=== PATIENT | male | born 1970 | race Caucasian/White ===

== ENCOUNTER 2017-10-12 22:10 | Emergency (ER) | payer SELFPAY ==
[2017-10-12] MEDS ORDERED: Benzonatate 100 MG CAP ONE (22:46)
[2017-10-12] MEDS ORDERED: Amlodipine 5 MG TAB ONE (22:46)
--- NOTE | 2017-10-12 22:59 | RAD ---
RADIOGRAPH CHEST 2 VIEWS: 10/12/17 HISTORY: 47-year-old male with acute chest pain and cough. FINDINGS: There is no air space density, pulmonary edema, pleural effusion, pneumothorax, or cardiomegaly. IMPRESSION: No acute cardiopulmonary findings. yanelis [] POS: [facility]
[2017-10-12 23:16] LABS: #Basophils 0.1 thou/uL (0.0-0.2); #Eosinphils 0.3 thou/uL (0.0-0.7); #Lymphocytes 2.7 thou/uL (1.20-3.40); #Monocytes 0.6 thou/uL (0.11-0.59); %Basophils 1.2 % (0.0-1.0); %Lymphocytes 31.1 % (21.0-51.0); %Neutrophils 56.7 % (42.0-75.0); Hemoglobin 13.9 g/dL (14.0-18.0); Mean Corpuscular HGB CONC 32.8 g/dL (32.0-36.0); Mean Corpuscular Hemoglobin 30.2 pg (27.0-31.0); Mean Corpuscular Volume 92.1 fl (80.0-94.0); Mean Platelet Volume 7.7 fL (7.4-10.4); Platelet Count 218 thou/uL (130-400); RBC Distribution Width 14.2 % (11.5-14.5); White Blood Cell (WBC) Count 8.8 thou/uL (4.8-10.8)
[2017-10-12 23:32] LABS: ALT (SGPT) 17 U/L (8-55); AST (SGOT) 13 U/L (5-34); Albumin 3.6 g/dL (3.5-5.0); Alkaline Phosphatase 61 U/L (40-150); Anion Gap 11 mmol/L (10-20); BUN (Urea Nitrogen) 12 mg/dL (8.9-20.6); Bilirubin, Total 0.2 mg/dL (0.2-1.2); Calc. Creatinine Clearance 0 mL/min (70-130); Calcium 8.9 mg/dL (7.8-10.44); Carbon Dioxide 26 mmol/L (22-29); Chloride 106 mmol/L (98-107); Estimated GFR-MDRD 74; Globulin 2.7 g/dL (2.4-3.5); Glucose 136 mg/dL (70-105); Potassium 4.1 mmol/L (3.5-5.1); Protein, Total 6.3 g/dL (6.0-8.3); Sodium 139 mmol/L (136-145)
[2017-10-12 23:34] LABS: CKMB 1.6 ng/mL (0-6.6); Troponin I Less than 0.010 ng/mL (< 0.028)
== END 2017-10-12 23:55 | disposition home or self-care (01) ==
LOC: SCSER 22:10
DX: J40 Bronchitis, not specified as acute or chronic (principal); I10 Essential (primary) hypertension; R07.89 Other chest pain; F17.210 Nicotine dependence, cigarettes, uncomplicated; Z71.6 Tobacco abuse counseling
CPT/HCPCS: 71046; 80053; 82553; 83880; 84484; 85025; 93005; 99406

== ENCOUNTER 2018-11-02 20:36 | Emergency (ER) | payer SELFPAY ==
[~2018-11-02 20:36] MED LIST: ISOVUE-370 76%-LOCM 1 ML ONE
[2018-11-02 21:07] LABS: #Basophils 0.1 thou/uL (0.0-0.2); #Eosinphils 0.3 thou/uL (0.0-0.7); #Monocytes 0.8 thou/uL (0.11-0.59); #Neutrophils 5.2 thou/uL (1.40-6.50); %Basophils 0.9 % (0.0-1.0); %Eosinophils 3.5 % (0.0-10.0); %Lymphocytes 31.9 % (21.0-51.0); %Monocytes 8.3 % (0.0-10.0); %Neutrophils 55.5 % (42.0-75.0); Hemoglobin 14.4 g/dL (14.0-18.0); Mean Corpuscular HGB CONC 30.8 g/dL (32.0-36.0); Mean Corpuscular Hemoglobin 29.3 pg (27.0-31.0); Mean Platelet Volume 8.1 fL (7.4-10.4); Platelet Count 224 thou/uL (130-400); RBC Distribution Width 14.7 % (11.5-14.5); Red Blood Cell (RBC) Count 4.93 mill/uL (4.70-6.10); White Blood Cell (WBC) Count 9.4 thou/uL (4.8-10.8)
--- NOTE | 2018-11-02 21:18 | RAD ---
Chest one view HISTORY: Chest pain. COMPARISON: 03/15/2015. FINDINGS: Cardiac silhouette is magnified by projection. Mediastinum is midline. Mild bibasilar atele ctasis. No lobar consolidation or evidence of pneumothorax. housing inspectors leads overlie the chest. IMPRESSION: No active cardiopulmonary abnormalities are demonstrated.
[2018-11-02 21:29] LABS: ALT (SGPT) 12 U/L (8-55); AST (SGOT) 10 U/L (5-34); Albumin 3.7 g/dL (3.5-5.0); Alkaline Phosphatase 82 U/L (40-150); Anion Gap 12 mmol/L (10-20); BUN (Urea Nitrogen) 14 mg/dL (8.9-20.6); Bilirubin, Total 0.2 mg/dL (0.2-1.2); CK (CPK) 134 U/L (30-200); Calc. Creatinine Clearance 0 mL/min (70-130); Calcium 8.9 mg/dL (7.8-10.44); Carbon Dioxide 28 mmol/L (22-29); Chloride 102 mmol/L (98-107); Estimated GFR-MDRD 68; Globulin 2.6 g/dL (2.4-3.5); Glucose 175 mg/dL (70-105); Lipase 25 U/L (8-78); Potassium 4.3 mmol/L (3.5-5.1); Protein, Total 6.3 g/dL (6.0-8.3); Sodium 138 mmol/L (136-145)
--- NOTE | 2018-11-02 23:25 | CT ---
CT arteriogram chest with IV contrast and 3-D MIP imaging HISTORY: Chest pain. Dyspnea. FINDINGS: There is good contrast opacification of the pulmonary arteries and thoracic aorta with norm al branching of the great vessels at the aortic arch. Calcification of the coronary arteries. No pleural fluid, pneumothorax, or mediastinal adenopathy. IMPRESSION: No CT evidence of pulmonary embolus. Atherosclerosis.
== END 2018-11-03 00:26 | disposition home or self-care (01) ==
LOC: ERS 20:36
DX: R07.9 Chest pain, unspecified (principal); Z71.6 Tobacco abuse counseling; I10 Essential (primary) hypertension; I25.2 Old myocardial infarction; F17.210 Nicotine dependence, cigarettes, uncomplicated; Z79.899 Other long term (current) drug therapy
CPT/HCPCS: 36415; 71045; 71275; 80053; 82550; 83690; 84484; 85025; 93005; Q9966

== ENCOUNTER 2019-03-10 02:07 | Inpatient (IN) | payer SELFPAY ==
[2019-03-10 02:28] LABS: Actual Bicarbonate (HCO3a) 18.8 mEq/L (22-28); Analyzer IN Cardio ER; Base Excess (BEa) -3.1 mEq/L (-2.0 to +3.0); CO2 Tension 26.9 mmHg (35.0-45.0); Calcium, Ionized 1.09 mmol/L (1.12-1.30); Carboxyhemoglobin (COHb) 2.7 gm% (0.0-3.0); Hemoglobin (Hb) 16.3 g/dL (14.0-18.0); O2 Tension (PaO2) 73.3 mmHg (80.0-100.0); Potassium - ABG Lab 3.83 mmol/L (3.70-5.30); pH, Arterial 7.46 (7.35-7.45)
[2019-03-10 02:46] LABS: #Lymphocytes 1.5 thou/uL (1.20-3.40); #Monocytes 1.5 thou/uL (0.11-0.59); #Neutrophils 11.4 thou/uL (1.40-6.50); %Basophils 0.3 % (0.0-1.0); %Eosinophils 0.3 % (0.0-10.0); %Lymphocytes 10.5 % (21.0-51.0); %Monocytes 10.3 % (0.0-10.0); %Neutrophils 78.6 % (42.0-75.0); Hemoglobin 16.1 g/dL (14.0-18.0); Mean Corpuscular HGB CONC 34.4 g/dL (32.0-36.0); Mean Corpuscular Hemoglobin 31.4 pg (27.0-31.0); Mean Corpuscular Volume 91.2 fL (78.0-98.0); Mean Platelet Volume 8.2 fL (7.4-10.4); Platelet Count 180 thou/uL (130-400); Red Blood Cell (RBC) Count 5.12 mill/uL (4.70-6.10); White Blood Cell (WBC) Count 14.5 thou/uL (4.8-10.8)
[2019-03-10] MEDS ORDERED: Morphine 4 MG/ML VIAL ONE (02:50)
[2019-03-10] MEDS ORDERED: Ondansetron PF 4 MG/2 ML Vial ONE (02:50)
[2019-03-10 02:57] LABS: ALV-art Gradient 42.805 (0-20); Puncture Site LRA
[2019-03-10] MEDS ORDERED: Piperacillin/Tazobactam 4.5 GM VIAL ONE (03:01)
[2019-03-10 03:07] LABS: ALT (SGPT) 9 U/L (8-55); AST (SGOT) 10 U/L (5-34); Albumin 3.9 g/dL (3.5-5.0); Alkaline Phosphatase 68 U/L (40-150); Anion Gap 15 mmol/L (10-20); BUN (Urea Nitrogen) 12 mg/dL (8.9-20.6); Bilirubin, Total 0.4 mg/dL (0.2-1.2); Calc. Creatinine Clearance 0 mL/min (70-130); Calcium 8.9 mg/dL (7.8-10.44); Carbon Dioxide 19 mmol/L (22-29); Chloride 100 mmol/L (98-107); Estimated GFR-MDRD 60; Globulin 3.3 g/dL (2.4-3.5); Glucose 143 mg/dL (70-105); Potassium 3.9 mmol/L (3.5-5.1); Protein, Total 7.2 g/dL (6.0-8.3); Sodium 130 mmol/L (136-145)
[2019-03-10 03:11] LABS: Bacteria/HPF None Seen HPF (None Seen); Bilirubin Negative (Negative); Blood, Urine 1+ (Negative); Clarity Clear (Clear); Glucose, Urine (Dipstick) Normal (Negative); Leukocyte Negative Leu/uL (Negative); Nitrite Negative (Negative); Protein, Urine (Dipstick) 30 mg/dL (Neg-Trace); RBC/HPF 0-3 HPF (0-3); Squamous Epithelial 0-3 HPF (0-3); Urobilinogen 6 mg/dL (Less than 2)
[2019-03-10] MEDS ORDERED: Labetalol HCl 100 MG/20 ML VIAL ONE (03:42)
[2019-03-10] MEDS ORDERED: niCARdipine 20MG In NaCl 20 MG/200 ML BAG ONE ×2 (04:31→08:02)
--- NOTE | 2019-03-10 05:54 | CT ---
CT BRAIN WITHOUT CONTRAST: INDICATIONS: History of headache. COMPARISON: None. FINDINGS: No acute infarct, hemorrhage, or hydrocephalus is present. No midline shift is noted. The skull is intact. The mastoid air cells are clear. The visualized paranasal sinuses are clear. IMPRESSION: No acute intracranial abnormality. POS: [facility]
[2019-03-10] MEDS ORDERED: Acetaminophen 325 MG TAB PO PRN ×2 (08:34→09:24)
[2019-03-10] MEDS ORDERED: HYDROcodone/Acetaminophen 5/325 mg Tablet PO PRN ×2 (08:34)
[2019-03-10] MEDS ORDERED: Ondansetron PF 4 MG/2 ML Vial IVP PRN ×2 (08:34→09:24)
[2019-03-10] MEDS ORDERED: Sodium Chloride 0.9% 1,000 ML IV SCH ×2 (08:34→09:30)
[2019-03-10] MEDS ORDERED: Ondansetron ODT 4 MG TAB SL PRN (08:34)
[2019-03-10] MEDS ORDERED: Morphine 4 MG/ML VIAL SLOW IVP PRN (08:39)
[2019-03-10 08:52] VITALS: BMI 53.5
--- NOTE | 2019-03-10 08:56 | RAD ---
PORTABLE CHEST ONE VIEW: 03/10/2019 2:43 a.m. HISTORY: Weakness. COMPARISON: 11/02/2018 FINDINGS: The heart size is stable. The lungs are well expanded without focal areas of consolidation, pneumoth oraces, neo pulmonary edema, or pleural effusions. POS: [facility]
[2019-03-10] MEDS ORDERED: Piperacillin/Tazobactam 4.5 GM in Sodium Chloride 0.9% 100 ML IVPB SCH (09:00)
[2019-03-10] MEDS ORDERED: niCARdipine 25 MG in Sodium Chloride 0.9% 250 ML 240 ML IVPB SCH (09:00)
[2019-03-10] MEDS ORDERED: Dextrose 50% Abboject 50 ML SYRINGE SLOW IVP PRN (09:24)
[2019-03-10] MEDS ORDERED: Dextrose 5% in Water 1,000 ML IV PRN (09:24)
[2019-03-10] MEDS ORDERED: Bisacodyl 10 MG SUPP PR PRN (09:24)
[2019-03-10] MEDS ORDERED: Senokot S 8.6-50 MG TAB PO PRN (09:24)
[2019-03-10] MEDS ORDERED: HumaLOG 300 UNITS/3 ML VIAL SC PRN (09:24)
[2019-03-10] MEDS ORDERED: Guaifenesin DM 100-10/5 ML UDCUP PO PRN (09:24)
[2019-03-10 09:36] LABS: Acetaminophen Less than 6.0 mcg/mL (10.0-30.0); Alcohol Less than 10 mg/dL (Less than 10); Salicylate Less than 8.0 mg/dL (15.0-30.0)
[2019-03-10 09:58] LABS: Cardiac Risk 4.4 (Less than 4.5)
[2019-03-10] MEDS: Nitroglycerin 2% Ointment 1 INCH/1 GM Packet TOP SCH ×3 (09:58→21:21)
[2019-03-10] MEDS ORDERED: Nitroglycerin 2% Ointment 1 INCH/1 GM Packet TOP SCH (10:00)
[2019-03-10] MEDS ORDERED: Labetalol 100 MG TAB PO SCH (10:00)
[2019-03-10] MEDS ORDERED: Lisinopril 10 MG TAB PO SCH (10:00)
[2019-03-10] MEDS ORDERED: hydrALAZINE 20 MG/ML VIAL SLOW IVP PRN (11:12)
[2019-03-10] MEDS ORDERED: Labetalol HCl 100 MG/20 ML VIAL SLOW IVP PRN (11:12)
[2019-03-10] MEDS ORDERED: Furosemide 20 MG/2 ML VIAL SLOW IVP SCH (11:15)
--- NOTE | 2019-03-10 11:36 | CON ---
DATE OF CONSULTATION: 03/10/2019 SERVICE: Pulmonary Medicine. REASON FOR CONSULTATION: ICU patient. HISTORY OF PRESENT ILLNESS: The patient is a pleasant 49-year-old white male, who started having onset of headache on . It became more severe over the last couple of days. It is associated with very elevated blood pressure. He presented to the Emergency Department. His blood pressures were identified to be 220/ 140. As such, he was placed on a Cardene drip, given some p.r.n. medications, and tucked in the ICU. Currently, the head pain is improving a little bit. He denies any nausea, vomiting, or diarrhea. He did admit to using methamphetamine on . Otherwise, he is in his usual state of health and did not have any recent fevers or chills. He denies cough. There has been no nausea, vomiting, or diarrhea. He did not have any hot, red, swollen joints, or new rashes that he can appreciate. PAST MEDICAL HISTORY: 1. Hypertension. 2. Morbid obesity. 3. Substance abuse with methamphetamine. PAST SURGICAL HISTORY: None. ALLERGIES: NO KNOWN DRUG ALLERGIES. MEDICATIONS: List of the inpatient medications was reviewed. Multiple updates were made. FAMILY HISTORY: Noncontributory. SOCIAL HISTORY: He smokes half a pack on a daily basis and has greater than 20 pack-year history of smoking. Denies any alcohol. He uses methamphetamine recreationally. He has no exposure to chemicals, dust, asbestos, or tuberculosis. REVIEW OF SYSTEMS: General, head, ears, eyes, nose, throat, cardiovascular, respiratory, GI, , musculoskeletal, neurologic, and skin are negative except as mentioned in the HPI. PHYSICAL EXAMINATION: VITAL SIGNS: Afebrile, pulse 91, blood pressure 163/83, respirations 24, and saturation 99% on room air. GENERAL: The patient is awake and alert, in no apparent distress. LUNGS: Decent air entry. There is minimal dependent crackles present. No prolonged expiratory phase or wheezing appreciated. HEART: Normal rate. Regular. ABDOMEN: Soft, nontender, and nondistended. Bowel sounds are positive. MUSCULOSKELETAL: No cyanosis or clubbing. There is trace pitting in the bilateral lower extremities. NEUROLOGIC: Grossly nonfocal. LABORATORY DATA: WBC 14.5, hemoglobin 16.1, and platelets 180,000. A pH of 7.46, pCO2 of 27, and pO2 of 73. Basic metabolic profile and liver function studies are unremarkable except for a sodium of 130. Creatinine is 1.28, which is close to his baseline of 1.05. Urinalysis is essentially unremarkable. Salicylates, acetaminophen, and alcohol are all unremarkable. IMAGIN. CT brain demonstrates no acute intracranial abnormality. 2. Chest x-ray demonstrates no acute cardiopulmonary abnormality. ASSESSMENT: 1. Hypertensive emergency. 2. Methamphetamine use/abuse. 3. Medical noncompliance. DISCUSSION AND PLAN: The patient is doing fine from respiratory standpoint. He is breathing comfortably. He has a little bit of a headache, but it is much improved. We will continue his p.r.n. blood pressure medications and resume his home medications, which he has not been taking for a period of time. Once his blood pressures are under control off the Cardene drip, he can be transitioned out of the ICU. When he leaves the ICU, he will have no further requirements for inpatient Pulmonary/Critical Care opinion, and I will sign off. Please call with additional questions or concerns through time. IV fluids will be interrupted, and I will give him a dose of Lasix. 70 minutes have been devoted to this patient in various activities. I personally reviewed all imaging studies and laboratory data noted within this document. For fifty percent of this time, I was interacting with the patient at the bedside or coordinating care with the care team. For the remainder of the time I was immediately available to the patient in the hospital unit. Job ID: [id number] MTDD
[2019-03-10] MEDS: HYDROcodone/Acetaminophen 5/325 mg Tablet PO PRN ×2 (12:07→19:28)
[2019-03-10] MEDS ORDERED: methylPREDNISolone Sod Succ 40 MG VIAL IVP SCH (14:00)
--- NOTE | 2019-03-10 14:50 | HP ---
REASON FOR ADMISSION: Hypertensive emergency, chest pain. HISTORY OF PRESENTING ILLNESS: The patient gives history of having severe pounding headache from last 3 days, off and on. He has also been sweating a lot and dry heaving from last 2 days. He felt dehydrated. He has had shooting chest pains which have lasted for a minute or so associated with shortness of breath and palpitations. The chest pains are retrosternal. He has been getting these from last one week, off and on. He has known history of hypertension and has not been taking any medications for the last 4 months now. The patient admits to using methamphetamine on . Currently, he has no chest pain or shortness of breath. He has had fever of 100 in the ER. PAST MEDICAL AND SURGICAL HISTORY: Hypertension, obesity, substance abuse, noncompliance with medication, and tobacco abuse. No prior surgical history. CURRENT MEDICATIONS: Please note that the patient is not taking any medications from last 4 months. He was prescribed lisinopril 40 mg daily and metoprolol 25 mg twice daily in the past. ALLERGIES: NO KNOWN DRUG ALLERGIES. PERSONAL HISTORY: Smokes half pack a day. Uses methamphetamine occasionally and the last usage was . Denies using alcohol. Lives with his girlfriend. The patient has three children, a 21-year-old, 16-year-old, and 13-year-old. FAMILY HISTORY: Mother of seizure and its complications at the age of 68 years. She has had history of hypertension as well. Father in his sleep. He was 68 years old and he had history of hypertension as well. CODE STATUS: Full. Power of patent attorney is his girlfriend. REVIEW OF SYSTEMS: CONSTITUTIONAL: Negative for weight loss or gain, ability to conduct usual activities. SKIN: Negative for rash, itching. EYES: Negative for double vision, pain. ENT/MOUTH: Negative for nose bleeding, neck stiffness, pain, tenderness. CARDIOVASCULAR: Negative for palpitations, dyspnea on exertion, orthopnea. RESPIRATORY: Negative for shortness of breath, wheezing, cough, hemoptysis, fever or night sweats. GASTROINTESTINAL: Negative for poor appetite, abdominal pain, heartburn, nausea , vomiting, constipation, or diarrhea. GENITOURINARY: Negative for urgency, frequency, dysuria, nocturia. MUSCULOSKELETAL: Negative for pain, swelling. NEUROLOGIC/PSYCHIATRIC: Negative for anxiety, depression. ALLERGY/IMMUNOLOGIC: Negative for skin rash, bleeding tendency. PHYSICAL EXAMINATION: GENERAL: The patient is a 49-year-old male, who is currently not in any acute distress. VITAL SIGNS: Blood pressure on arrival was 210/110, currently around 150/80 on Cardene drip. Pulse 110 per minute, respiratory rate 20 per minute, temperature 100 degrees Fahrenheit on arrival, saturating 95% on 2 L nasal cannula. NECK: Supple. No elevated JVD. HEENT: Eyes; extraocular muscles are intact. Pupils are reacting to light. Oral cavity, mucous membranes are dry. No exudates or congestion. CARDIOVASCULAR SYSTEM: S1 and S2, heard, regular rhythm. RESPIRATORY SYSTEM: Air entry 1+ bilateral. Scattered rhonchi plus, no rales or wheezes. ABDOMEN: Soft. Bowel sounds heard. No tenderness, rigidity, or guarding. EXTREMITIES: No peripheral edema or calf tenderness. VASCULAR SYSTEM: Peripheral pulses 1+ bilateral. No ischemic ulcerations or gangrene. CENTRAL NERVOUS SYSTEM: No gross focal deficits noted. The patient is alert and oriented well. PSYCHIATRIC SYSTEM: The patient's mood is euthymic. No hallucinations or delusions. LABORATORY DATA: CT brain without contrast done shows no acute intracranial abnormality. Chest x-ray done shows no acute cardiopulmonary abnormality. EKG done shows sinus tach at 106 beats per minute. There is left anterior fascicular block seen. Serum drug screen shows plasma alcohol of less than 10. UA shows no signs of infection. Total cholesterol 128, triglycerides 71, LDL 85, HDL 29, BUN 12, creatinine 1.28, serum sodium is 130, bicarb is 19. Liver enzymes are within normal limits. Albumin is 3.9. Blood gas shows a pH of 7.46, pCO2 of 26, PO2 of 73. White count of 14, H and H 16 and 46, platelet count 180 with 76% neutrophils and MCV of 91. CLINICAL IMPRESSION AND PLAN: The patient will be admitted to ICU for hypertensive emergency. He is currently getting weaned off Cardene. We will place him on aspirin, Lipitor, labetalol 100 mg twice daily, lisinopril 10 mg twice daily, and nitroglycerin paste 1 inch t.i.d. We will also gently hydrate him with normal saline. Echo with 2D Doppler for LV function and wall motion will be obtained. Urine drug screen will be obtained with the patient admitting to using methamphetamine. Blood and urine cultures have been obtained in the ER and will follow up on that. The patient does not appear to be septic at present. He will be on DuoNeb with Augmentin for mild chronic obstructive pulmonary disease flare up. We will continue to closely monitor him in ICU. Once the patient is off Cardene drip, he will be transferred to telemetry. Job ID: [id number] MTDD
[2019-03-10] MEDS ORDERED: Vancomycin HCl 1 GM in Premix Bag 1 BAG IVPB SCH (16:00)
[2019-03-10 16:01] LABS: Amphetamine Not Detected (NotDetected); Barbiturates Screen Not Detected (NotDetected); Benzodiazepine Screen Not Detected (NotDetected); Cocaine Metabolite Screen Not Detected (NotDetected); Medtox Control Line Valid? VALID (VALID); Medtox Reader # READER 4; Methadone Not Detected (NotDetected); Methamphetamine Detected (NotDetected); Opiate Screen Detected (NotDetected); Oxycodone Screen Not Detected (NotDetected); Phencyclidine (PCP) Not Detected (NotDetected); THC/Cannabinoid Screen Detected (NotDetected); Tricyclic Screen Not Detected (NotDetected)
[2019-03-10] MEDS ORDERED: Atorvastatin Calcium 10 MG TAB PO SCH (21:00)
[2019-03-10] MEDS: Amoxicillin/Potassium Clav 875 MG TAB PO SCH (21:17)
[2019-03-10] MEDS: Lisinopril 10 MG TAB PO SCH (21:19)
[2019-03-10] MEDS: Labetalol 100 MG TAB PO SCH (21:20)
[2019-03-10] MEDS: Famotidine 20 MG TAB PO SCH (21:20)
[2019-03-11] MEDS: HYDROcodone/Acetaminophen 5/325 mg Tablet PO PRN (00:04)
[2019-03-11 05:45] LABS: #Eosinphils 0.2 thou/uL (0.0-0.7); #Lymphocytes 2.6 thou/uL (1.20-3.40); #Monocytes 1.3 thou/uL (0.11-0.59); #Neutrophils 5.7 thou/uL (1.40-6.50); %Basophils 0.4 % (0.0-1.0); %Eosinophils 1.9 % (0.0-10.0); %Lymphocytes 26.6 % (21.0-51.0); %Monocytes 13.6 % (0.0-10.0); %Neutrophils 57.5 % (42.0-75.0); Hemoglobin 14.9 g/dL (14.0-18.0); Mean Corpuscular HGB CONC 33.6 g/dL (32.0-36.0); Mean Corpuscular Hemoglobin 31.1 pg (27.0-31.0); Mean Corpuscular Volume 92.5 fL (78.0-98.0); Mean Platelet Volume 8.1 fL (7.4-10.4); Platelet Count 188 thou/uL (130-400); Red Blood Cell (RBC) Count 4.78 mill/uL (4.70-6.10); White Blood Cell (WBC) Count 9.9 thou/uL (4.8-10.8)
[2019-03-11 05:52] LABS: Hemoglobin A1c 6.8 % (4.0-6.0)
[2019-03-11 06:05] LABS: Anion Gap 14 mmol/L (10-20); BUN (Urea Nitrogen) 13 mg/dL (8.9-20.6); Calc. Creatinine Clearance 203 mL/min (70-130); Calcium 8.8 mg/dL (7.8-10.44); Carbon Dioxide 23 mmol/L (22-29); Chloride 103 mmol/L (98-107); Estimated GFR-MDRD 59; Glucose 133 mg/dL (70-105); Potassium 3.9 mmol/L (3.5-5.1); Sodium 136 mmol/L (136-145)
[2019-03-11] MEDS ORDERED: Enoxaparin Sodium 40 MG/0.4 ML SYRINGE SC SCH (09:00)
[2019-03-11] MEDS ORDERED: Aspirin 325 MG TAB PO SCH (09:00)
[2019-03-11] MEDS ORDERED: Hydrochlorothiazide 25 MG TAB PO SCH (09:00)
[2019-03-11] MEDS: Amoxicillin/Potassium Clav 875 MG TAB PO SCH (09:18)
[2019-03-11] MEDS: Famotidine 20 MG TAB PO SCH (09:18)
[2019-03-11] MEDS: Lisinopril 10 MG TAB PO SCH (09:18)
[2019-03-11] MEDS: Labetalol 100 MG TAB PO SCH (09:19)
[2019-03-11 09:49] VITALS: BP 170/79; TEMP 98
--- NOTE | 2019-03-11 16:35 | DIS ---
DATE OF ADMISSION: 03/10/2019 DATE OF DISCHARGE: 03/11/2019 DISCHARGE DISPOSITION: Home. PRIMARY DISCHARGE DIAGNOSES: Hypertensive emergency, completely resolved; cocaine abuse; medication noncompliance; obesity; tobacco abuse. PROCEDURES DONE DURING HOSPITALIZATION: The patient had echo with 2D Doppler done, which showed EF of 50% to 55% with diastolic dysfunction. CT brain done on the day of admission showed no acute intracranial process. Chest x-ray done showed no acute infiltrate. Urine culture, no growth. Blood cultures x2, no growth. Discharge white count of 9, H and H of 14 and 44, platelet count 188, MCV is 92. Discharge BUN and creatinine of 13 and 1.29. HbA1c 6.8. Total cholesterol 128, triglycerides 71, LDL 85, HDL 29. Urine drug screen was positive for methamphetamine, cannabinoids, and opiates. Plasma alcohol less than 10. DISCHARGE MEDICATIONS: 1. Albuterol inhaler q.6 hourly p.r.n. 2. Norvasc 10 mg p.o. daily. 3. Augmentin 875 mg p.o. twice daily for another 4 days. 4. Aspirin 81 mg p.o. daily. 5. Lipitor 10 mg p.o. at bedtime. 6. Hydrochlorothiazide 25 mg p.o. daily. 7. Lisinopril 10 mg twice daily. 8. Omeprazole 20 mg daily. ALLERGIES: NO KNOWN DRUG ALLERGIES. DISCHARGE PLAN: The patient to follow up with [facility] in 1 week. BRIEF COURSE DURING HOSPITALIZATION: The patient initially came to ER with complaints of severe pounding headache from last 3 days, off and on. On arrival , the patient's systolic blood pressure was elevated to more than 200. He has been noncompliant with his hypertension medications for the last three or four months or so. He also admitted to using methamphetamine. In view of this history, the patient was initially admitted to ICU on Cardene drip. He was placed on multiple oral agents along with nitro paste and this has brought his blood pressure to be well controlled. His Cardene drip was discontinued. He has been uptitrated on his antihypertensive medications. He has had an echo done, which showed normal ejection fraction. He was counseled with regard to substance abuse and medication compliance. He was also found to be a new diabetic with HbA1c of 6.8. The patient wants to try to control his diabetes with diet control and dietary consultation was requested. Prior to discharge, he is ambulating and eating well. I have given complete updates to the patient and his girlfriend at bedside. He is hemodynamically stable and will be shortly discharged home. Please note, I have seen and examined the patient on the day of discharge. Job ID: [id number] MTDD
== END 2019-03-11 14:36 | disposition home or self-care (01) | DRG 305 ==
LOC: ERS 02:07 → CCU 08:26 → 2NO 17:08
PROVIDERS: ADMIT Internal Medicine; ATTEND Internal Medicine
DX: I16.1 Hypertensive emergency (principal); Z68.43 Body mass index [BMI] 50.0-59.9, adult; Z91.14 Patient's other noncompliance with medication regimen; E66.9 Obesity, unspecified; F17.210 Nicotine dependence, cigarettes, uncomplicated; I10 Essential (primary) hypertension; Z82.49 Family history of ischemic heart disease and other diseases of the circulatory system; F15.10 Other stimulant abuse, uncomplicated
CPT/HCPCS: 36415; 36416; 70450; 71045; 80048; 80053; 80061; 80306; 80307; 81003; 81015; 82805; 83036; 83605; 85025; 87040; 87086; 93005; 93010; 93306; 94640; 96360; 96361; 96365; 96367; 96375; J0360; J1650; J1940; J2270; J2405; J2543; J3370; J7050; J7620

== ENCOUNTER 2019-08-02 10:45 | Emergency (ER) | payer SELFPAY ==
--- NOTE | 2019-08-02 11:41 | CT ---
Head CT without contrast 08/02/2019: COMPARISON: 03/10/2019 HISTORY: Headache for 8 days, history of hypertension TECHNIQUE: Axial CT imaging at 5 mm intervals from vertex through skull base without contrast FINDINGS: Visualized paranasal sinuses and mastoid air cells are well-aerated. No displaced calvarial fracture. No intracranial hemorrhage, midline shift, mass effect, or ventricular enlargement. There is atherosclerotic calcification of the distal vertebral arteries. IMPRESSION: No intracranial hemorrhage.
--- NOTE | 2019-08-02 11:48 | CT ---
CT Cervical Spine WO Con History: Injury Comparison: None. Findings: Evaluation of the lower cervical spine is limited due to photon observation from overlying shoulder attenuation. There is scarring in the lung apices. The odontoid process is intact. Occipital condyles are intact. No acute fracture or malalignment. Multilevel degenerative disc space disease with disc osteophyte complexes. Impression: No acute fracture or malalignment.
[2019-08-02] MEDS ORDERED: diphenhydrAMINE 50 MG/ML VIAL ONE (12:13)
[2019-08-02] MEDS ORDERED: Metoclopramide HCl 10 MG/2 ML VIAL ONE (12:13)
[2019-08-02] MEDS ORDERED: Acetaminophen 500 MG TAB ONE (12:20)
== END 2019-08-02 13:47 | disposition home or self-care (01) ==
LOC: ERS 10:45
DX: R51 Headache (principal); I10 Essential (primary) hypertension; I25.2 Old myocardial infarction; F17.210 Nicotine dependence, cigarettes, uncomplicated; Z79.899 Other long term (current) drug therapy
CPT/HCPCS: 70450; 72125; 96365; 96375; J1200; J2765

== ENCOUNTER 2019-09-08 19:49 | Inpatient (IN) | payer SELFPAY ==
[~2019-09-08 19:49] MED LIST changes: +Heparin 10,000 UNITS/ 10 ML VIAL ONE; -ISOVUE-370 76%-LOCM 1 ML ONE; +Sodium Chloride 0.9% 1,000 ML BAG ONE
[2019-09-08] MEDS ORDERED: Ondansetron PF 4 MG/2 ML Vial ONE ×2 (19:57→20:46)
[2019-09-08] MEDS ORDERED: Heparin (Artline) 1,000 ML ONE (19:57)
[2019-09-08] MEDS ORDERED: Heparin 10,000 UNITS/1 ML VIAL ONE (19:57)
[2019-09-08] MEDS ORDERED: Fentanyl 100 MCG/2 ML VIAL ONE (19:57)
[2019-09-08] MEDS ORDERED: Lidocaine 1% (PF) 30 ML VIAL ONE (19:57)
[2019-09-08] MEDS ORDERED: Nitroglycerin 100MG/250ML BOT 250 ML ONE (20:08)
[2019-09-08] MEDS ORDERED: Verapamil 5 MG/2 ML VIAL ONE (20:08)
[2019-09-08 20:11] LABS: #Basophils 0.1 thou/uL (0.0-0.2); #Eosinphils 0.6 thou/uL (0.0-0.7); #Lymphocytes 4.1 thou/uL (1.20-3.40); #Monocytes 1.2 thou/uL (0.11-0.59); %Basophils 0.4 % (0.0-1.0); %Eosinophils 3.8 % (0.0-10.0); %Lymphocytes 27.4 % (21.0-51.0); %Monocytes 7.8 % (0.0-10.0); %Neutrophils 60.7 % (42.0-75.0); Hemoglobin 14.1 g/dL (14.0-18.0); Mean Corpuscular HGB CONC 33.8 g/dL (32.0-36.0); Mean Corpuscular Hemoglobin 32.2 pg (27.0-31.0); Mean Corpuscular Volume 95.5 fL (78.0-98.0); Platelet Count 240 thou/uL (130-400); RBC Distribution Width 13.8 % (11.5-14.5); Red Blood Cell (RBC) Count 4.37 mill/uL (4.70-6.10); White Blood Cell (WBC) Count 14.8 thou/uL (4.8-10.8)
[2019-09-08 20:18] LABS: PTT 23.1 SEC (22.9-36.1); Prothrombin Time 13.3 SEC (12.0-14.7)
--- NOTE | 2019-09-08 20:19 | RAD ---
Exam: Chest one view HISTORY:Chest pain Comparison: 03/10/2019 FINDINGS: Cardiac silhouette: Normal Aorta: Unremarkable Pulmonary vessels: Normal Costophrenic angles: Clear LUNGS: No masses or consolidation. Pneumothorax: None Osseous abnormalities: None IMPRESSION: No acute cardiopulmonary process.
[2019-09-08 20:35] LABS: ALT (SGPT) 23 U/L (8-55); AST (SGOT) 14 U/L (5-34); Albumin 3.2 g/dL (3.5-5.0); Alkaline Phosphatase 55 U/L (40-110); Anion Gap 15 mmol/L (10-20); BUN (Urea Nitrogen) 22 mg/dL (8.9-20.6); Bilirubin, Total 0.2 mg/dL (0.2-1.2); CK (CPK) 90 U/L (30-200); Calc. Creatinine Clearance 0 mL/min (70-130); Calcium 7.8 mg/dL (7.8-10.44); Carbon Dioxide 24 mmol/L (22-29); Chloride 106 mmol/L (98-107); Estimated GFR-MDRD 57; Globulin 2.5 g/dL (2.4-3.5); Glucose 105 mg/dL (70-105); Potassium 3.7 mmol/L (3.5-5.1); Protein, Total 5.7 g/dL (6.0-8.3); Sodium 141 mmol/L (136-145)
[2019-09-08] MEDS ORDERED: Atropine Sulfate 1 mg/10 ml Syringe ONE ×2 (20:41→20:44)
[2019-09-08] MEDS ORDERED: DOPamine 400 MG/D5W 250 ML 250 ML ONE (20:45)
[2019-09-08] MEDS ORDERED: Acetaminophen/Codeine 30-300mg Tablet PO PRN (21:26)
[2019-09-08] MEDS ORDERED: Milk Of Magnesia 30 ML UDCUP PO PRN (21:26)
[2019-09-08] MEDS ORDERED: Morphine 2 MG/ML SYRINGE SLOW IVP PRN (21:26)
[2019-09-08] MEDS ORDERED: traMADol HCl 50 MG TAB PO PRN (21:26)
[2019-09-08] MEDS ORDERED: Mag-Al 1200 mg/1200 mg/30 ML UDCUP PO PRN (21:26)
[2019-09-08] MEDS ORDERED: Sodium Chloride 0.9% 500 ML IV SCH (21:45)
--- NOTE | 2019-09-08 22:06 | CON ---
DATE OF CONSULTATION: 09/08/2019 REASON FOR CONSULTATION: Chest pain. HISTORY OF PRESENT ILLNESS: Mr. Regalado is a pleasant 49-year-old white gentleman, who comes to the hospital for chest pain. He called EMS for ongoing chest tightness midsternal, it radiated to the left arm and lasted for about 2 hours before coming in. EMS on route did an EKG that showed inferior ST elevation, so Cardiology was called in for STEMI alert. On my evaluation, Mr. Regalado was in severe pain. He is 6 feet 4 inches, and 450 pounds. There was a wide mediastinum on the chest x-ray, however, he could not fit on the CT scanner for evaluation of possible dissection, so we decided to take him to the catheterization lab to see if there was coronary artery disease. We did a radial-access angiogram and found to have an occluded mid RCA. This was ballooned and opened. A 4.5 x 20 mm bare-metal stent was placed successfully. He had a lot of nausea and vomiting and actually got very bradycardic during the revascularization process and had to be put on dopamine eventually, went into AIVR, wide-complex rhythm at about 90 beats per minute, but we did not have to shock him as he maintained his blood pressure. Eventually, he went back to sinus narrow-complex rhythm and was stable and his pain got better. PAST MEDICAL HISTORY: 1. Hypertension. 2. Type-2 diabetes. OUTPATIENT MEDICATIONS: He takes 2 blood pressure medicines, he does not know the name. will bring medications. SOCIAL HISTORY: He smokes half-a-pack a day. No alcohol use. He smokes marijuana almost daily. No other drugs. PAST SURGICAL HISTORY: None. FAMILY HISTORY: Noncontributory. REVIEW OF SYSTEMS: A 12-point review of systems was done and was all negative unless stated in the history of present illness. PHYSICAL EXAMINATION: VITAL SIGNS: Temperature 98.2, pulse 72, blood pressure 110/68, respiratory rate 20, saturating 92% on 10 L mask. GENERAL: Awake, alert, oriented x3, in pain. HEENT: Normocephalic, atraumatic. NECK: Supple. LUNGS: Clear anteriorly. CARDIOVASCULAR: S1 and S2. No S3 or S4. No murmurs. Distant heart sounds. ABDOMEN: Prominent, difficult to hear sounds. EXTREMITIES: No edema. SKIN: Warm and dry. Multiple tattoos on his chest and arms. LABORATORY DATA: White count of 14, hemoglobin of 14, hematocrit of 41, platelet count of 240. Coags were unremarkable. Chemistry was unremarkable except for a BUN of 22 and creatinine 1.33. His initial troponin was undetectable. IMAGING DATA: Chest x-ray, no acute abnormalities. Angiography as above, occluded RCA, very large probably 4.5 to 5.0 vessel. 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 There are some diagonals that are severely stenosed, but ostially not amenable to revascularization. ASSESSMENT: 1. Acute inferior ST-elevation myocardial infarction. 2. Ongoing tobacco use. 3. Type-2 diabetes. 4. Hypertension. 5. Noncompliance. PLAN: 1. Status post bare-metal stent to the RCA. 2. Dual-antiplatelet therapy with aspirin and Plavix. 3. Tobacco cessation counseling. 4. Beta-heriberto and CHAO inhibitor once blood pressure and heart rate allows. 5. High dose statins. 6. PPI for stress ulcer prophylaxis. 7. Subcu Lovenox for DVT prophylaxis. 8. Radial access care post catheterization. 9. Full code. 10. Disposition, pending clinical evaluation. Job ID: [id number]
[2019-09-08] MEDS ORDERED: Ondansetron PF 4 MG/2 ML Vial SLOW IVP PRN (22:44)
[2019-09-08] MEDS ORDERED: Promethazine HCl 12.5 MG in Sodium Chloride 0.9% 50 ML IVPB SCH (23:00)
[2019-09-08 23:10] VITALS: BMI 56.8
[2019-09-08 23:11] LABS: CKMB 49.5 ng/mL (0-6.6)
[2019-09-09 03:37] LABS: #Basophils 0.1 thou/uL (0.0-0.2); #Eosinphils 0.3 thou/uL (0.0-0.7); #Monocytes 0.9 thou/uL (0.11-0.59); #Neutrophils 10.2 thou/uL (1.40-6.50); %Basophils 0.6 % (0.0-1.0); %Lymphocytes 20.5 % (21.0-51.0); %Monocytes 6.1 % (0.0-10.0); %Neutrophils 70.8 % (42.0-75.0); Hemoglobin 15.8 g/dL (14.0-18.0); Mean Corpuscular HGB CONC 33.8 g/dL (32.0-36.0); Mean Corpuscular Hemoglobin 31.9 pg (27.0-31.0); Mean Corpuscular Volume 94.3 fL (78.0-98.0); Mean Platelet Volume 7.9 fL (7.4-10.4); Platelet Count 230 thou/uL (130-400); Red Blood Cell (RBC) Count 4.95 mill/uL (4.70-6.10); White Blood Cell (WBC) Count 14.3 thou/uL (4.8-10.8)
[2019-09-09 04:33] LABS: ALT (SGPT) 34 U/L (8-55); AST (SGOT) 81 U/L (5-34); Albumin 3.8 g/dL (3.5-5.0); Alkaline Phosphatase 66 U/L (40-110); Anion Gap 12 mmol/L (10-20); BUN (Urea Nitrogen) 21 mg/dL (8.9-20.6); Bilirubin, Total 0.3 mg/dL (0.2-1.2); Calc. Creatinine Clearance 220 mL/min (70-130); Calcium 9.3 mg/dL (7.8-10.44); Carbon Dioxide 24 mmol/L (22-29); Cardiac Risk 3.7 (Less than 4.5); Chloride 103 mmol/L (98-107); Cholesterol 133 mg/dl (< 200 Desired); Estimated GFR-MDRD 63; Globulin 2.9 g/dL (2.4-3.5); Glucose 146 mg/dL (70-105); HDL Cholesterol 36 mg/dL (>60 Neg Risk); LDL Cholesterol, Calculated 82 mg/dL; Potassium 4.4 mmol/L (3.5-5.1); Protein, Total 6.7 g/dL (6.0-8.3); Sodium 135 mmol/L (136-145); Triglycerides 73 mg/dL (Less than 150)
[2019-09-09 04:36] LABS: Free T4 (Free Thyroxine) 1.13 ng/dL (0.70-1.48)
[2019-09-09 04:48] LABS: CKMB 127.2 ng/mL (0-6.6); Troponin I 39.875 ng/mL (< 0.028)
[2019-09-09 04:57] LABS: Thyroid Stimulating Hormone 2.1374 uIU/mL (0.35-4.94)
--- NOTE | 2019-09-09 09:09 | CON ---
DATE OF CONSULTATION: 09/09/2019 REASON FOR CONSULTATION: ICU stay. CONSULTING PHYSICIAN: Dr. Redmond. HISTORY OF PRESENT ILLNESS: The patient is a 49-year-old, who presented with chest pain, found to have an inferior MN, was taken to the analytical laboratory technician where he had a stent placed. He is now free of chest pain, has no complaints. PAST MEDICAL HISTORY: 1. Hypertension. 2. Type 2 diabetes mellitus. 3. Substance abuse. PAST SURGICAL HISTORY: Denies. ALLERGIES: NONE. MEDICATIONS: Prior to admission; 1. Hydrochlorothiazide 25 mg daily. 2. Aspirin 81 mg daily. 3. Amlodipine 10 mg daily. 4. Albuterol 2 puffs every 6 hours as needed. 5. Omeprazole 20 mg daily. 6. Lisinopril 10 mg b.i.d. SOCIAL HISTORY: Smokes about half pack per day. Smokes marijuana daily. Previously used methamphetamines. He says he has not used that in the last 3 months. REVIEW OF SYSTEMS: Otherwise, negative. PHYSICAL EXAMINATION: VITAL SIGNS: Temperature 97.5, pulse 64, blood pressure 153/92, O2 saturation in the low 90s. GENERAL: He is a large male, who is 6 feet 4 inches, weighs 467 pounds. 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 Tongue protrudes midline. NECK: No adenopathy or JVD. No carotid bruits. LUNGS: Clear anteriorly. CARDIOVASCULAR: S1 and S2 regular. ABDOMEN: Morbidly obese, soft, nontender. EXTREMITIES: No clubbing, cyanosis, or edema. LABORATORY DATA: White blood cell count 14, hematocrit 46, platelet count 230. INR 1. Sodium 135, potassium 4.4, BUN 21, creatinine 1.2, glucose 146. Troponin 39.8. ASSESSMENT: 1. Myocardial infarction. 2. Drug abuse. 3. Hyperglycemia. 4. Hypertension. 5. Morbid obesity. PLAN: No active pulmonary critical care needs. Can easily be transferred to the floor at the discretion of the Cardiology team. May need Internal Medicine consultation for management of diabetic issues and hypertension. Job ID: [id number]
[2019-09-09] MEDS: Aspirin Chewable 81 MG TAB PO SCH (09:50)
[2019-09-09] MEDS: TICAGRELOR 90 MG TABLET PO SCH ×2 (09:51→21:23)
--- NOTE | 2019-09-09 16:09 | EKG ---
Test Reason : Blood Pressure : / mmHG Vent. Rate : 078 BPM Atrial Rate : 078 BPM P-R Int : 182 ms QRS Dur : 116 ms QT Int : 388 ms P-R-T Axes : 055 -46 051 degrees QTc Int : 442 ms Normal sinus rhythm Left anterior fascicular block Abnormal ECG Confirmed by SHANIQUE TORRES ([id number]) on 09/09/2019 4:09:18 PM Referred By: Ja CARNEY Confirmed By:SHANIQUE TORRES
[2019-09-09 17:12] LABS: Troponin I 23.352 ng/mL (< 0.028)
[2019-09-09] MEDS: Carvedilol 3.125 MG TAB PO SCH (18:00)
[2019-09-09] MEDS: Atorvastatin Calcium 40 MG TAB PO SCH (21:19)
[2019-09-09] MEDS: Lisinopril 10 MG TAB PO SCH (21:19)
[2019-09-10 04:41] LABS: #Basophils 0.1 thou/uL (0.0-0.2); #Eosinphils 0.7 thou/uL (0.0-0.7); #Lymphocytes 3.6 thou/uL (1.20-3.40); #Monocytes 0.7 thou/uL (0.11-0.59); %Eosinophils 7.4 % (0.0-10.0); %Lymphocytes 35.5 % (21.0-51.0); %Monocytes 6.9 % (0.0-10.0); %Neutrophils 49.2 % (42.0-75.0); Hemoglobin 14.9 g/dL (14.0-18.0); Mean Corpuscular HGB CONC 33.6 g/dL (32.0-36.0); Mean Corpuscular Hemoglobin 31.6 pg (27.0-31.0); Mean Corpuscular Volume 93.9 fL (78.0-98.0); Mean Platelet Volume 8.2 fL (7.4-10.4); Platelet Count 216 thou/uL (130-400); Red Blood Cell (RBC) Count 4.72 mill/uL (4.70-6.10); White Blood Cell (WBC) Count 10.1 thou/uL (4.8-10.8)
[2019-09-10 05:00] LABS: ALT (SGPT) 32 U/L (8-55); AST (SGOT) 42 U/L (5-34); Albumin 3.7 g/dL (3.5-5.0); Alkaline Phosphatase 61 U/L (40-110); Anion Gap 13 mmol/L (10-20); BUN (Urea Nitrogen) 16 mg/dL (8.9-20.6); Bilirubin, Total 0.5 mg/dL (0.2-1.2); Calc. Creatinine Clearance 202 mL/min (70-130); Calcium 9.2 mg/dL (7.8-10.44); Carbon Dioxide 27 mmol/L (22-29); Chloride 102 mmol/L (98-107); Estimated GFR-MDRD 57; Glucose 127 mg/dL (70-105); Potassium 4.3 mmol/L (3.5-5.1); Protein, Total 6.7 g/dL (6.0-8.3); Sodium 138 mmol/L (136-145)
[2019-09-10] MEDS: TICAGRELOR 90 MG TABLET PO SCH ×2 (08:37→21:08)
[2019-09-10] MEDS: Lisinopril 10 MG TAB PO SCH ×2 (08:37→21:08)
[2019-09-10] MEDS: Carvedilol 3.125 MG TAB PO SCH (08:38)
[2019-09-10] MEDS: Aspirin Chewable 81 MG TAB PO SCH (08:39)
[2019-09-10] MEDS: Carvedilol 6.25 MG TAB PO SCH (17:30)
[2019-09-10] MEDS: Atorvastatin Calcium 40 MG TAB PO SCH (21:08)
[2019-09-11 03:39] VITALS: TEMP 97.5
[2019-09-11 05:08] LABS: #Basophils 0.1 thou/uL (0.0-0.2); #Eosinphils 0.8 thou/uL (0.0-0.7); #Lymphocytes 3.2 thou/uL (1.20-3.40); #Monocytes 0.9 thou/uL (0.11-0.59); #Neutrophils 5.8 thou/uL (1.40-6.50); %Basophils 0.9 % (0.0-1.0); %Eosinophils 7.2 % (0.0-10.0); %Lymphocytes 29.8 % (21.0-51.0); %Monocytes 8.5 % (0.0-10.0); %Neutrophils 53.6 % (42.0-75.0); Hemoglobin 15.2 g/dL (14.0-18.0); Mean Corpuscular HGB CONC 33.9 g/dL (32.0-36.0); Mean Corpuscular Hemoglobin 31.7 pg (27.0-31.0); Mean Corpuscular Volume 93.5 fL (78.0-98.0); Mean Platelet Volume 8.6 fL (7.4-10.4); Platelet Count 219 thou/uL (130-400); RBC Distribution Width 13.9 % (11.5-14.5); Red Blood Cell (RBC) Count 4.81 mill/uL (4.70-6.10); White Blood Cell (WBC) Count 10.9 thou/uL (4.8-10.8)
[2019-09-11 05:32] LABS: ALT (SGPT) 28 U/L (8-55); AST (SGOT) 20 U/L (5-34); Albumin 3.9 g/dL (3.5-5.0); Alkaline Phosphatase 70 U/L (40-110); Anion Gap 13 mmol/L (10-20); BUN (Urea Nitrogen) 17 mg/dL (8.9-20.6); Bilirubin, Total 0.4 mg/dL (0.2-1.2); Calc. Creatinine Clearance 211 mL/min (70-130); Calcium 9.3 mg/dL (7.8-10.44); Carbon Dioxide 25 mmol/L (22-29); Chloride 104 mmol/L (98-107); Estimated GFR-MDRD 60; Glucose 132 mg/dL (70-105); Protein, Total 6.9 g/dL (6.0-8.3); Sodium 138 mmol/L (136-145)
[2019-09-11] MEDS: Lisinopril 10 MG TAB PO SCH (08:48)
[2019-09-11] MEDS: Aspirin Chewable 81 MG TAB PO SCH (08:49)
[2019-09-11] MEDS: Carvedilol 6.25 MG TAB PO SCH (08:49)
[2019-09-11] MEDS: TICAGRELOR 90 MG TABLET PO SCH (08:49)
--- NOTE | 2019-09-11 10:02 | DIS ---
DATE OF ADMISSION: 09/08/2019 DATE OF DISCHARGE: 09/11/2019 DISCHARGE DIAGNOSES: 1. Acute myocardial infarction. 2. Status post percutaneous transluminal coronary angioplasty and stent placement to the right coronary artery. 3. Hypertension. 4. Dyslipidemia. 5. Ischemic cardiomyopathy. 6. Tobacco abuse. 7. Morbid obesity. HISTORY: This gentleman is a 49-year-old gentleman, who presented with acute onset of chest discomfort. The patient was noted to have an acute ST-elevation myocardial infarction. The patient was taken to the cardiac catheterization lab emergently. HOSPITAL COURSE: On 09/08/2019, the patient underwent an emergent cardiac catheterization. He was found to have a 40% LAD lesion. The patient had anomalous left circumflex artery. The left anterior descending artery had a 40% stenosis. The patient was placed on medical therapy. He remained free of chest pain throughout his hospitalization. His peak troponin level was 39. The patient has been highly advised to be compliant with his medications and to discontinue smoking. The patient did have an echocardiogram, which revealed a mild decrease left ventricular ejection fraction of 40% to 45%. DISCHARGE MEDICATIONS: 1. Coreg 6.25 b.i.d. 2. Lisinopril 10 b.i.d. 3. Plavix 75 daily. 4. Aspirin 81 daily. 5. Lipitor 40 at bedtime. Job ID: [id number]
[2019-09-11 10:34] VITALS: BP 137/84
== END 2019-09-11 12:00 | disposition home or self-care (01) | DRG 249 ==
LOC: ERS 19:49 → SDC/OP 20:20 → CCU 21:24 → 2NO 09-09 19:36
PROVIDERS: ADMIT Internal Medicine Cardiovascular Disease; ATTEND Internal Medicine Cardiovascular Disease
PROC: 02703DZ Dilation of Coronary Artery, One Artery with Intraluminal Device, Percutaneous Approach (ICD-10-PCS; principal; 2019-09-08)
PROC: 02C03ZZ Extirpation of Matter from Coronary Artery, One Artery, Percutaneous Approach (ICD-10-PCS; 2019-09-08)
PROC: B2111ZZ Fluoroscopy of Multiple Coronary Arteries using Low Osmolar Contrast (ICD-10-PCS; 2019-09-08)
DX: I21.3 ST elevation (STEMI) myocardial infarction of unspecified site (principal); Z68.43 Body mass index [BMI] 50.0-59.9, adult; I10 Essential (primary) hypertension; E78.5 Hyperlipidemia, unspecified; I25.5 Ischemic cardiomyopathy; F17.200 Nicotine dependence, unspecified, uncomplicated; E66.01 Morbid (severe) obesity due to excess calories; F12.10 Cannabis abuse, uncomplicated; E11.65 Type 2 diabetes mellitus with hyperglycemia; Z91.19 Patient's noncompliance with other medical treatment and regimen; Z79.899 Other long term (current) drug therapy; Z79.82 Long term (current) use of aspirin
CPT/HCPCS: 36415; 71045; 80053; 80061; 82550; 82553; 83880; 84439; 84443; 84484; 85025; 85610; 85730; 86850; 86900; 86901; 92941; 93005; 93010; 93306; 93454; 93798; 96374; 96375; 96376; C1769; C1876; C1887; J0461; J1265; J1644; J2001; J2405; J2550; J3010; J7050

== ENCOUNTER 2021-12-11 14:53 | Inpatient (IN) | payer OTHER, SELFPAY ==
[2021-12-11] MEDS ORDERED: Aspirin Chewable 81 MG TAB ONE (15:19)
[2021-12-11 15:38] LABS: #Basophils 0.1 thou/uL (0.0-0.2); #Eosinphils 0.3 thou/uL (0.0-0.7); #Lymphocytes 2.4 thou/uL (1.20-3.40); #Monocytes 1.4 thou/uL (0.11-0.59); %Basophils 0.4 % (0.0-1.0); %Eosinophils 1.9 % (0.0-10.0); %Lymphocytes 16.8 % (21.0-51.0); %Monocytes 10.2 % (0.0-10.0); %Neutrophils 70.8 % (42.0-75.0); Hemoglobin 14.8 g/dL (14.0-18.0); Mean Corpuscular HGB CONC 31.3 g/dL (32.0-36.0); Mean Corpuscular Hemoglobin 30.5 pg (27.0-31.0); Mean Corpuscular Volume 97.4 fL (78.0-98.0); Mean Platelet Volume 8.3 fL (7.4-10.4); Platelet Count 234 thou/uL (130-400); RBC Distribution Width 14.8 % (11.5-14.5); Red Blood Cell (RBC) Count 4.87 mill/uL (4.70-6.10); White Blood Cell (WBC) Count 14.2 thou/uL (4.8-10.8)
[2021-12-11 16:03] LABS: ALT (SGPT) 15 U/L (8-55); AST (SGOT) 8 U/L (5-34); Albumin 4.1 g/dL (3.5-5.0); Alkaline Phosphatase 82 U/L (40-110); Anion Gap 13 mmol/L (10-20); BUN (Urea Nitrogen) 13 mg/dL (8.9-20.6); Bilirubin, Total 0.5 mg/dL (0.2-1.2); Calc. Creatinine Clearance 0 mL/min (70-130); Calcium 9.2 mg/dL (7.8-10.44); Carbon Dioxide 22 mmol/L (22-29); Chloride 104 mmol/L (98-107); Globulin 3.3 g/dL (2.4-3.5); Glucose 114 mg/dL (70-105); Potassium 3.6 mmol/L (3.5-5.1); Protein, Total 7.4 g/dL (6.0-8.3); Sodium 135 mmol/L (136-145)
[2021-12-11] MEDS ORDERED: Dextrose 50% Abboject 50 ML SYRINGE SLOW IVP PRN (16:50)
[2021-12-11] MEDS ORDERED: Ondansetron PF 4 MG/2 ML Vial IVP PRN (16:50)
[2021-12-11] MEDS ORDERED: Acetaminophen 325 MG TAB PO PRN (16:50)
[2021-12-11] MEDS ORDERED: HumaLOG 300 UNITS/3 ML VIAL SC PRN (16:50)
[2021-12-11] MEDS ORDERED: Dextrose 5% in Water 1,000 ML IV PRN (16:50)
[2021-12-11] MEDS ORDERED: Nicotine 14 MG PATCH TD PRN (16:50)
[2021-12-11] MEDS ORDERED: Nitroglycerin 0.4 MG TAB (25 Tab Bottle) SL PRN (16:50)
[2021-12-11] MEDS ORDERED: hydrALAZINE 20 MG/ML VIAL SLOW IVP PRN (16:55)
[2021-12-11] MEDS ORDERED: cefTRIAXone\\ROCEPHIN 2 GM in Sodium Chloride 0.9% 100 ML IVPB SCH (17:00)
[2021-12-11] MEDS ORDERED: Doxycycline 100 MG CAP PO SCH (17:30)
[2021-12-11] MEDS ORDERED: Cefepime 2 GM in Sodium Chloride 0.9% 100 ML IVPB SCH (18:00)
[2021-12-11 18:41] LABS: Troponin I Less than 0.010 ng/mL (< 0.028)
[2021-12-11 19:07] VITALS: BMI 46.0
[2021-12-11] MEDS: Clopidogrel Bisulfate 75 MG TAB PO SCH (20:50)
[2021-12-11] MEDS: Atorvastatin Calcium 40 MG TAB PO SCH (20:50)
[2021-12-11] MEDS: Cefepime 2 GM in Sodium Chloride 0.9% 100 ML IVPB SCH (20:51)
[2021-12-11 21:34] LABS: Troponin I Less than 0.010 ng/mL (< 0.028)
[2021-12-11 22:37] LABS: Troponin I Less than 0.010 ng/mL (< 0.028)
[2021-12-12 05:15] LABS: #Basophils 0.1 thou/uL (0.0-0.2); #Eosinphils 0.3 thou/uL (0.0-0.7); #Lymphocytes 2.6 thou/uL (1.20-3.40); #Neutrophils 7.4 thou/uL (1.40-6.50); %Basophils 0.5 % (0.0-1.0); %Eosinophils 2.4 % (0.0-10.0); %Lymphocytes 22.8 % (21.0-51.0); %Monocytes 9.1 % (0.0-10.0); %Neutrophils 65.1 % (42.0-75.0); Hemoglobin 15.2 g/dL (14.0-18.0); Mean Corpuscular HGB CONC 32.8 g/dL (32.0-36.0); Mean Corpuscular Volume 97.6 fL (78.0-98.0); Mean Platelet Volume 8.6 fL (7.4-10.4); Platelet Count 179 thou/uL (130-400); RBC Distribution Width 14.6 % (11.5-14.5); Red Blood Cell (RBC) Count 4.75 mill/uL (4.70-6.10); White Blood Cell (WBC) Count 11.4 thou/uL (4.8-10.8)
[2021-12-12 05:40] LABS: Anion Gap 13 mmol/L (10-20); BUN (Urea Nitrogen) 14 mg/dL (8.9-20.6); Calc. Creatinine Clearance 228 mL/min (70-130); Calcium 8.9 mg/dL (7.8-10.44); Carbon Dioxide 22 mmol/L (22-29); Chloride 105 mmol/L (98-107); Glucose 121 mg/dL (70-105); Sodium 136 mmol/L (136-145)
[2021-12-12] MEDS: Cefepime 2 GM in Sodium Chloride 0.9% 100 ML IVPB SCH ×2 (07:45→19:57)
[2021-12-12] MEDS: Aspirin Chewable 81 MG TAB PO SCH (07:45)
[2021-12-12] MEDS ORDERED: Amlodipine 10 MG TAB PO SCH ×2 (09:00→21:00)
[2021-12-12] MEDS ORDERED: Regadenoson 0.4 MG/5 ML SYRINGE ONE (14:28)
[2021-12-12 18:02] LABS: SARS-CoV-2 PCR by NAA Not Detected (NotDetected)
[2021-12-12] MEDS: Atorvastatin Calcium 40 MG TAB PO SCH (19:56)
[2021-12-12] MEDS: Clopidogrel Bisulfate 75 MG TAB PO SCH (19:56)
[2021-12-13] MEDS: Cefepime 2 GM in Sodium Chloride 0.9% 100 ML IVPB SCH (09:42)
[2021-12-13] MEDS: Aspirin Chewable 81 MG TAB PO SCH (09:42)
[2021-12-13 16:56] VITALS: BP 154/94; TEMP 98.7
[2021-12-14] MEDS ORDERED: Carvedilol 3.125 MG TAB PO SCH (08:00)
== END 2021-12-13 18:14 | disposition left against medical advice (07) | DRG 638 ==
LOC: ERS 14:53 → 2SW 16:50 → OBSVTOIN 12-12 12:51
PROVIDERS: ADMIT Family Medicine; ATTEND Internal Medicine
DX: E11.621 Type 2 diabetes mellitus with foot ulcer (principal); Z68.42 Body mass index [BMI] 45.0-49.9, adult; R07.89 Other chest pain; E78.5 Hyperlipidemia, unspecified; I10 Essential (primary) hypertension; E66.01 Morbid (severe) obesity due to excess calories; F17.210 Nicotine dependence, cigarettes, uncomplicated; I25.10 Atherosclerotic heart disease of native coronary artery without angina pectoris; L97.529 Non-pressure chronic ulcer of other part of left foot with unspecified severity; Z20.822 Contact with and (suspected) exposure to COVID-19; I25.2 Old myocardial infarction; Z95.5 Presence of coronary angioplasty implant and graft
CPT/HCPCS: 36415; 36416; 71045; 78452; 80048; 80053; 83605; 84484; 85025; 87040; 93005; 93017; 94760; A9500; J0692; J2785; J3490; U0003; U0005

== ENCOUNTER 2022-10-17 23:44 | Observation (INO) | payer SELFPAY ==
[2022-10-18 00:34] LABS: #Basophils 0.1 thou/uL (0.0-0.2); #Eosinphils 0.2 thou/uL (0.0-0.7); #Lymphocytes 2.8 thou/uL (1.20-3.40); #Monocytes 0.9 thou/uL (0.11-0.59); #Neutrophils 10.7 thou/uL (1.40-6.50); %Basophils 0.5 % (0.0-1.0); %Eosinophils 1.6 % (0.0-10.0); %Monocytes 6.3 % (0.0-10.0); %Neutrophils 72.6 % (42.0-75.0); Hemoglobin 16.7 g/dL (14.0-18.0); Mean Corpuscular HGB CONC 32.5 g/dL (32.0-36.0); Mean Corpuscular Hemoglobin 30.6 pg (27.0-31.0); Mean Corpuscular Volume 94.3 fl (78.0-98.0); Mean Platelet Volume 8.6 fL (7.4-10.4); Platelet Count 210 10x3/uL (130-400); RBC Distribution Width 14.5 % (11.5-14.5); Red Blood Cell (RBC) Count 5.46 mill/uL (4.70-6.10); White Blood Cell (WBC) Count 14.7 10x3/uL (4.8-10.8)
[2022-10-18 00:54] LABS: ALT (SGPT) 17 U/L (8-55); AST (SGOT) 12 U/L (5-34); Albumin 3.9 g/dL (3.5-5.0); Alkaline Phosphatase 74 U/L (40-110); Anion Gap 13 mmol/L (10-20); BUN (Urea Nitrogen) 23 mg/dL (8.4-25.7); Bilirubin, Total 0.4 mg/dL (0.2-1.2); Calc. Creatinine Clearance 0 mL/min (70-130); Calcium 9.3 mg/dL (7.8-10.44); Carbon Dioxide 23 mmol/L (22-29); Chloride 107 mmol/L (98-107); Estimated GFR 63; Globulin 3.3 g/dL (2.4-3.5); Glucose 126 mg/dL (70-105); Potassium 4.1 mmol/L (3.5-5.1); Protein, Total 7.2 g/dL (6.0-8.3); Sodium 139 mmol/L (136-145)
[2022-10-18] MEDS ORDERED: Aspirin Chewable 81 MG TAB ONE (00:58)
[2022-10-18] MEDS ORDERED: cloNIDine 0.1 MG TAB ONE (00:58)
[2022-10-18] MEDS ORDERED: Ondansetron PF 4 MG/2 ML Vial ONE (00:58)
[2022-10-18] MEDS ORDERED: Ondansetron PF 4 MG/2 ML Vial IVP PRN (01:39)
[2022-10-18] MEDS ORDERED: Acetaminophen 325 MG TAB PO PRN (01:39)
[2022-10-18] MEDS ORDERED: Ondansetron ODT 4 MG TAB PO PRN (01:39)
[2022-10-18] MEDS ORDERED: Lactated Ringer's 1,000 ML IV SCH (02:00)
[2022-10-18 03:55] LABS: #Basophils 0.1 thou/uL (0.0-0.2); #Eosinphils 0.2 thou/uL (0.0-0.7); #Lymphocytes 2.8 thou/uL (1.20-3.40); #Monocytes 0.7 thou/uL (0.11-0.59); #Neutrophils 8.5 thou/uL (1.40-6.50); %Basophils 0.5 % (0.0-1.0); %Eosinophils 1.9 % (0.0-10.0); %Lymphocytes 22.9 % (21.0-51.0); %Monocytes 5.6 % (0.0-10.0); %Neutrophils 69.1 % (42.0-75.0); Hemoglobin 16.5 g/dL (14.0-18.0); Mean Corpuscular HGB CONC 32.8 g/dL (32.0-36.0); Mean Corpuscular Hemoglobin 30.9 pg (27.0-31.0); Mean Corpuscular Volume 94.1 fl (78.0-98.0); Mean Platelet Volume 8.9 fL (7.4-10.4); Platelet Count 196 10x3/uL (130-400); RBC Distribution Width 14.2 % (11.5-14.5); Red Blood Cell (RBC) Count 5.35 mill/uL (4.70-6.10); White Blood Cell (WBC) Count 12.3 10x3/uL (4.8-10.8)
[2022-10-18 04:14] LABS: Anion Gap 11 mmol/L (10-20); BUN (Urea Nitrogen) 23 mg/dL (8.4-25.7); Calc. Creatinine Clearance 0 mL/min (70-130); Calcium 9.1 mg/dL (7.8-10.44); Carbon Dioxide 23 mmol/L (22-29); Chloride 107 mmol/L (98-107); Estimated GFR 76; Glucose 112 mg/dL (70-105); Potassium 4.4 mmol/L (3.5-5.1); Sodium 137 mmol/L (136-145)
[2022-10-18 04:47] LABS: Troponin I 0.011 ng/mL (< 0.028)
[2022-10-18 07:23] LABS: Troponin I Less than 0.010 ng/mL (< 0.028)
[2022-10-18] MEDS ORDERED: Famotidine/PF 20 mg/2ml Vial SLOW IVP SCH (09:00)
[2022-10-18] MEDS ORDERED: Famotidine 20 MG TAB PO SCH (09:00)
[2022-10-18] MEDS ORDERED: Aspirin Chewable 81 MG TAB PO SCH (09:00)
[2022-10-18] MEDS ORDERED: Famotidine 20 MG TAB ONE (09:56)
[2022-10-18 10:52] VITALS: BMI 40.6
[2022-10-18 13:09] LABS: Amphetamine Detected (NotDetected); Barbiturates Screen Not Detected (NotDetected); Benzodiazepine Screen Not Detected (NotDetected); Cocaine Metabolite Screen Not Detected (NotDetected); Methadone Not Detected (NotDetected); Methamphetamine Detected (NotDetected); Opiate Screen Not Detected (NotDetected); Oxycodone Screen Not Detected (NotDetected); Phencyclidine (PCP) Not Detected (NotDetected); THC/Cannabinoid Screen Detected (NotDetected); Tricyclic Screen Not Detected (NotDetected)
[2022-10-18 16:12] VITALS: BP 137/94; TEMP 98.4
[2022-10-18] MEDS ORDERED: Clopidogrel Bisulfate 75 MG TAB PO SCH (21:00)
[2022-10-18] MEDS ORDERED: Amlodipine 5 MG TAB PO SCH (21:00)
[2022-10-18] MEDS ORDERED: Atorvastatin Calcium 40 MG TAB PO SCH (21:00)
== END 2022-10-18 18:22 | disposition home or self-care (01) ==
LOC: ERS 23:44 → ERHOLD 10-18 01:34 → 2SW 10-18 02:24
PROVIDERS: ADMIT Internal Medicine; ATTEND Internal Medicine
DX: R07.89 Other chest pain (principal); F15.90 Other stimulant use, unspecified, uncomplicated; F17.210 Nicotine dependence, cigarettes, uncomplicated; F12.10 Cannabis abuse, uncomplicated; I25.10 Atherosclerotic heart disease of native coronary artery without angina pectoris; E78.5 Hyperlipidemia, unspecified; E11.9 Type 2 diabetes mellitus without complications; I10 Essential (primary) hypertension; N17.9 Acute kidney failure, unspecified; D72.829 Elevated white blood cell count, unspecified; R11.2 Nausea with vomiting, unspecified; I25.2 Old myocardial infarction; E66.9 Obesity, unspecified; Z68.41 Body mass index [BMI] 40.0-44.9, adult; Z91.14 Patient's other noncompliance with medication regimen; Z79.02 Long term (current) use of antithrombotics/antiplatelets; Z79.899 Other long term (current) drug therapy; Z95.5 Presence of coronary angioplasty implant and graft
CPT/HCPCS: 36415; 36416; 71045; 80053; 80306; 84484; 85025; 93005; 96374; G0378; J2405; J7120

== ENCOUNTER 2023-04-11 13:25 | Inpatient (IN) | payer SELFPAY ==
[2023-04-11 14:22] LABS: #Monocytes 0.3 thou/uL (0.11-0.59); #Neutrophils 1.3 thou/uL (1.40-6.50); %Basophils 0.7 % (0.0-1.0); %Lymphocytes 39.3 % (21.0-51.0); %Neutrophils 48.6 % (42.0-75.0); Hematocrit 51.3 % (42.0-52.0); Hemoglobin 17.2 g/dL (14.0-18.0); Mean Corpuscular HGB CONC 33.5 g/dL (32.0-36.0); Mean Corpuscular Hemoglobin 29.6 pg (27.0-31.0); Mean Corpuscular Volume 88.1 fl (78.0-98.0); Mean Platelet Volume 11.1 fL (7.4-10.4); RBC Distribution Width 15.2 % (11.5-14.5); Red Blood Cell (RBC) Count 5.82 mill/uL (4.70-6.10); White Blood Cell (WBC) Count 2.7 10x3/uL (4.8-10.8)
[2023-04-11 14:26] LABS: Platelet Count 105 10x3/uL (130-400)
[2023-04-11 14:56] LABS: SARS-CoV-2 NAA Rapid Test Not Detected (NotDetected)
[2023-04-11 14:59] LABS: ALT (SGPT) 30 U/L (8-55); AST (SGOT) 40 U/L (5-34); Albumin 3.9 g/dL (3.5-5.0); Alkaline Phosphatase 74 U/L (40-110); Anion Gap 14 mmol/L (10-20); BUN (Urea Nitrogen) 19 mg/dL (8.4-25.7); Bilirubin, Total 0.2 mg/dL (0.2-1.2); Calc. Creatinine Clearance 0 mL/min (70-130); Calcium 8.6 mg/dL (7.8-10.44); Carbon Dioxide 21 mmol/L (22-29); Chloride 102 mmol/L (98-107); Estimated GFR 78; Globulin 2.5 g/dL (2.4-3.5); Glucose 93 mg/dL (70-105); Potassium 4.1 mmol/L (3.5-5.1); Protein, Total 6.4 g/dL (6.0-8.3); Sodium 133 mmol/L (136-145)
[2023-04-11] MEDS ORDERED: Acetaminophen 500 MG TAB ONE (15:12)
[2023-04-11] MEDS ORDERED: Aspirin 325 MG TAB ONE (16:33)
[2023-04-11 17:16] LABS: Troponin I 0.028 ng/mL (< 0.028)
[2023-04-11] MEDS ORDERED: Electrolyte Replacement Protocol 1 EACH FS SCH (18:30)
[2023-04-11] MEDS ORDERED: Ondansetron ODT 4 MG TAB PO PRN (18:31)
[2023-04-11] MEDS ORDERED: Ondansetron PF 4 MG/2 ML Vial IVP PRN (18:31)
[2023-04-11] MEDS ORDERED: Nitroglycerin 0.4 MG TAB (25 Tab Bottle) SL PRN (18:32)
[2023-04-11] MEDS ORDERED: Sodium Chloride 0.9% 1,000 ML IV SCH (18:45)
[2023-04-11 19:38] VITALS: BMI 41.5
[2023-04-11 20:28] LABS: Troponin I 0.025 ng/mL (< 0.028)
[2023-04-11] MEDS: Acetaminophen 325 MG TAB PO PRN (20:55)
[2023-04-11] MEDS: Atorvastatin Calcium 40 MG TAB PO SCH (20:56)
[2023-04-11] MEDS: Ranolazine 500 MG ER.TAB PO SCH (21:15)
[2023-04-12 00:35] LABS: Amphetamine Detected (NotDetected); Barbiturates Screen Not Detected (NotDetected); Benzodiazepine Screen Not Detected (NotDetected); Cocaine Metabolite Screen Not Detected (NotDetected); Methadone Not Detected (NotDetected); Methamphetamine Detected (NotDetected); Opiate Screen Not Detected (NotDetected); Oxycodone Screen Not Detected (NotDetected); Phencyclidine (PCP) Not Detected (NotDetected); THC/Cannabinoid Screen Detected (NotDetected); Tricyclic Screen Not Detected (NotDetected)
[2023-04-12 05:59] LABS: #Monocytes 0.2 thou/uL (0.11-0.59); %Basophils 0.9 % (0.0-1.0); %Lymphocytes 43.9 % (21.0-51.0); %Monocytes 9.5 % (0.0-10.0); %Neutrophils 45.2 % (42.0-75.0); Hematocrit 45.3 % (42.0-52.0); Hemoglobin 15.5 g/dL (14.0-18.0); Mean Corpuscular HGB CONC 34.2 g/dL (32.0-36.0); Mean Corpuscular Hemoglobin 30.1 pg (27.0-31.0); Mean Platelet Volume 11.3 fL (7.4-10.4); RBC Distribution Width 15.1 % (11.5-14.5); Red Blood Cell (RBC) Count 5.15 mill/uL (4.70-6.10); White Blood Cell (WBC) Count 2.2 10x3/uL (4.8-10.8)
[2023-04-12 06:00] LABS: Platelet Count 78 10x3/uL (130-400)
[2023-04-12] MEDS: Acetaminophen 325 MG TAB PO PRN ×4 (06:21→23:41)
[2023-04-12 07:20] LABS: Anion Gap 13 mmol/L (10-20); BUN (Urea Nitrogen) 15 mg/dL (8.4-25.7); Calc. Creatinine Clearance 194 mL/min (70-130); Carbon Dioxide 20 mmol/L (22-29); Chloride 101 mmol/L (98-107); Estimated GFR 91; Glucose 93 mg/dL (70-105); Magnesium 1.5 mg/dL (1.6-2.6); Potassium 3.9 mmol/L (3.5-5.1); Sodium 130 mmol/L (136-145)
[2023-04-12] MEDS: Amlodipine 10 MG TAB PO SCH (08:32)
[2023-04-12] MEDS: Ranolazine 500 MG ER.TAB PO SCH ×2 (08:32→20:38)
[2023-04-12] MEDS: Aspirin Chewable 81 MG TAB PO SCH (08:33)
[2023-04-12] MEDS ORDERED: Magnesium 2 GM/50 ML(in water) 2 GM in Premix Bag 1 BAG IVPB SCH (11:45)
[2023-04-12 13:05] LABS: Campy jejuni + coli by PCR Negative (Negative); STEC Shiga Toxin 1+2 Negative (Negative); Salmonella spp. by PCR Negative (Negative); Shigella spp + EIEC by PCR Negative (Negative)
[2023-04-12] MEDS ORDERED: Magnesium Sulfate In Water 4 GM in Premix Bag 1 BAG IVPB SCH (14:45)
[2023-04-12] MEDS: Atorvastatin Calcium 40 MG TAB PO SCH (20:38)
[2023-04-13] MEDS: Amlodipine 10 MG TAB PO SCH (08:47)
[2023-04-13] MEDS: Acetaminophen 325 MG TAB PO PRN (08:47)
[2023-04-13] MEDS: Aspirin Chewable 81 MG TAB PO SCH (08:47)
[2023-04-13] MEDS: Ranolazine 500 MG ER.TAB PO SCH (08:47)
[2023-04-13] MEDS ORDERED: Ketorolac Tromethamine 30 MG/ML VIAL IVP SCH ×2 (09:15→09:30)
[2023-04-13 11:04] VITALS: BP 118/70; TEMP 98.5
== END 2023-04-13 12:03 | disposition home or self-care (01) | DRG 865 ==
LOC: ERS 13:25 → 2SW 16:29 → OBSVTOIN 04-12 15:33
PROVIDERS: ADMIT Internal Medicine; ATTEND Internal Medicine
DX: B34.9 Viral infection, unspecified (principal); I21.A1 Myocardial infarction type 2; F19.10 Other psychoactive substance abuse, uncomplicated; Z72.0 Tobacco use; Z79.899 Other long term (current) drug therapy; Z79.82 Long term (current) use of aspirin
CPT/HCPCS: 36415; 36416; 71045; 80048; 80053; 80306; 83735; 84443; 84484; 85025; 87505; 93005; 93010; 93306; 96360; 96361; J1885; J3475; J7050

== ENCOUNTER 2023-08-31 19:47 | Emergency (ER) | payer SELFPAY ==
[2023-08-31] MEDS ORDERED: fentaNYL 50 mcg/mL 1 mL Vial ONE (20:07)
[2023-08-31 20:08] LABS: #Basophils 0.1 thou/uL (0.0-0.2); #Eosinphils 0.3 thou/uL (0.0-0.7); #Monocytes 0.7 thou/uL (0.11-0.59); #Neutrophils 3.5 thou/uL (1.40-6.50); %Basophils 0.8 % (0.0-1.0); %Eosinophils 3.5 % (0.0-10.0); %Lymphocytes 37.2 % (21.0-51.0); %Monocytes 9.1 % (0.0-10.0); Hematocrit 44.2 % (42.0-52.0); Hemoglobin 14.6 g/dL (14.0-18.0); Mean Corpuscular Hemoglobin 30.7 pg (27.0-31.0); Mean Corpuscular Volume 93.1 fl (78.0-98.0); Mean Platelet Volume 10.1 fL (7.4-10.4); Platelet Count 201 10x3/uL (130-400); RBC Distribution Width 14.9 % (11.5-14.5); Red Blood Cell (RBC) Count 4.75 mill/uL (4.70-6.10); White Blood Cell (WBC) Count 7.2 10x3/uL (4.8-10.8)
[2023-08-31 20:23] LABS: PTT 25.8 sec (22.9-36.1); Prothrombin Time 12.9 sec (12.0-14.7)
[2023-08-31 20:33] LABS: Acetaminophen Less than 10 mcg/mL (10.0-30.0); Alcohol Less than 10.0 mg/dL (Less than 10); Lipase 27 U/L (8-78); Magnesium 1.9 mg/dL (1.6-2.6); Salicylate Less than 8.0 mg/dL (15.0-30.0)
[2023-08-31 20:35] LABS: ALT (SGPT) 19 U/L (8-55); AST (SGOT) 16 U/L (5-34); Albumin 3.9 g/dL (3.5-5.0); Alkaline Phosphatase 59 U/L (40-110); Anion Gap 12 mmol/L (10-20); BUN (Urea Nitrogen) 14 mg/dL (8.4-25.7); Bilirubin, Total 0.3 mg/dL (0.2-1.2); Calc. Creatinine Clearance 0 mL/min (70-130); Calcium 8.9 mg/dL (7.8-10.44); Carbon Dioxide 26 mmol/L (22-29); Chloride 104 mmol/L (98-107); Estimated GFR 72; Globulin 2.5 g/dL (2.4-3.5); Glucose 116 mg/dL (70-105); Potassium 4.6 mmol/L (3.5-5.1); Protein, Total 6.4 g/dL (6.0-8.3); Sodium 137 mmol/L (136-145)
[2023-08-31 20:38] LABS: Troponin I 0.012 ng/mL (< 0.028)
== END 2023-08-31 21:42 | disposition home or self-care (01) ==
LOC: ERS 19:47
DX: S13.8XXA Sprain of joints and ligaments of other parts of neck, initial encounter (principal); E11.9 Type 2 diabetes mellitus without complications; I10 Essential (primary) hypertension; E78.5 Hyperlipidemia, unspecified; F17.210 Nicotine dependence, cigarettes, uncomplicated; Z79.899 Other long term (current) drug therapy; V89.2XXA Person injured in unspecified motor-vehicle accident, traffic, initial encounter
CPT/HCPCS: 36415; 70450; 70498; 71045; 71260; 72125; 74177; 80053; 80307; 83605; 83690; 83735; 83880; 84484; 85025; 85610; 85730; 93005; 96374; J3010

== ENCOUNTER 2024-01-30 06:47 | Emergency (ER) | payer BC, OTHER, SELFPAY ==
[2024-01-30] MEDS ORDERED: SUCCINYLCHOLINE/SOD CL,ISO/PF 200 MG/10 ML SYRINGE FS ONE (07:08)
[2024-01-30] MEDS ORDERED: KETAMINE 100 MG/ML (5ML VIAL) ONE (07:08)
[2024-01-30] MEDS ORDERED: HYDROmorphone 0.5 MG/0.5 ML SYRINGE ONE ×2 (07:10→07:49)
[2024-01-30] MEDS ORDERED: Propofol 1,000 MG/100 ML VIAL IV ONE ×4 (07:12→10:44)
[2024-01-30] MEDS ORDERED: Boostrix 0.5 ML (Tdap) VIAL (>/=7 yrs of age) ONE (07:16)
[2024-01-30] MEDS ORDERED: CEFAZOLIN 2 GM VIAL ONE (07:16)
[2024-01-30] MEDS ORDERED: Sodium Chloride 0.9% 100 ML ONE (07:16)
[2024-01-30 07:30] LABS: #Basophils 0.07 10x3/uL (0.0-0.2); %Basophils 0.7 % (0.0-1.0); %Eosinophils 2.3 % (0.0-10.0); %Lymphocytes 25.1 % (21.0-51.0); %Monocytes 7.5 % (0.0-10.0); %Neutrophils 64.1 % (42.0-75.0); Hematocrit 46.6 % (42.0-52.0); Hemoglobin 15.4 g/dL (14.0-18.0); Mean Corpuscular Hemoglobin 29.9 pg (27.0-31.0); Mean Corpuscular Volume 90.5 fL (78.0-98.0); Mean Platelet Volume 10.1 fL (7.4-10.4); Platelet Count 218 10x3/uL (130-400); Red Blood Cell (RBC) Count 5.15 mill/uL (4.70-6.10)
[2024-01-30] MEDS ORDERED: Fentanyl CADD 100 ML IV SCH (07:30)
[2024-01-30 07:36] LABS: Base Excess -2.5 mEq/L (-2.0 to +3.0); Calcium, Ionized (venous) 1.06 mmol/L (1.16-1.32); Chloride (VBG) 102 mmol/L (98-106); Hematocrit-VBG 48 % (42.0-52.0); Hemoglobin (Hb) 16.4 g/dL (13.1-17.2); Sodium 138 mmol/L (133-146); pH (venous) 7.386 (7.32-7.43)
[2024-01-30] MEDS ORDERED: LORazepam 2 MG/ML SYR.(CARPUJECT) ONE ×2 (07:44→10:22)
[2024-01-30 07:48] LABS: ALT (SGPT) 21 U/L (8-55); AST (SGOT) 14 U/L (5-34); Albumin 3.6 g/dL (3.5-5.0); Alkaline Phosphatase 72 U/L (40-110); Anion Gap 12 mmol/L (10-20); BUN (Urea Nitrogen) 16 mg/dL (8.4-25.7); Bilirubin, Total 0.3 mg/dL (0.2-1.2); Calc. Creatinine Clearance 0 mL/min (70-130); Carbon Dioxide 19 mmol/L (22-29); Chloride 108 mmol/L (98-107); Estimated GFR 72; Globulin 3.3 g/dL (2.4-3.5); Glucose 112 mg/dL (70-105); Potassium 4.4 mmol/L (3.5-5.1); Protein, Total 6.9 g/dL (6.0-8.3); Sodium 135 mmol/L (136-145)
[2024-01-30] MEDS ORDERED: fentaNYL 50 mcg/mL 1 mL Vial ONE (07:54)
[2024-01-30 08:11] LABS: Actual Bicarbonate (HCO3a) 22.8 mEq/L (22-28); Analyzer IN Cardio ER; Base Excess (BEa) -5.5 mEq/L (-2.0 to +3.0); CO2 Tension 55.2 mmHg (35.0-45.0); Calcium, Ionized (arterial) 1.13 mmol/L (1.12-1.30); Carboxyhemoglobin (COHb) 4.6 gm% (0.0-3.0); Hematocrit-ABG 46 % (42.0-52.0); Hemoglobin (Hb) 15.8 g/dL (14.0-18.0); O2 Tension (PaO2), arterial 271.4 mmHg (80.0-100.0); Potassium - ABG Lab 4.02 mmol/L (3.70-5.30); pH, Arterial 7.233 (7.35-7.45)
[2024-01-30 08:16] LABS: Puncture Site RRA
[2024-01-30 08:27] LABS: Troponin I 0.017 ng/mL (< 0.028)
[2024-01-30] MEDS ORDERED: methylPREDNISolone Sod Succ/PF 125 MG/2 ML VIAL ONE (10:10)
== END 2024-01-30 11:00 | disposition short-term general hospital (02) ==
LOC: ERS 06:47
DX: T28.0XXA Burn of mouth and pharynx, initial encounter (principal); T20.20XA Burn of second degree of head, face, and neck, unspecified site, initial encounter; T23.201A Burn of second degree of right hand, unspecified site, initial encounter; T22.212A Burn of second degree of left forearm, initial encounter; X00.0XXA Exposure to flames in uncontrolled fire in building or structure, initial encounter
CPT/HCPCS: 31500; 36415; 36600; 51702; 71045; 80053; 82805; 83605; 84484; 85025; 90715; 93005; 94002; 94640; 94760; 96365; 96366; 96374; 96375; 96376; G0390; J1170; J2060; J2704; J2930; J3010; J3490